=== PATIENT | female | born 1990 | race African-American/Black ===

== ENCOUNTER → 2018-04-28 | Outpatient (CLI) | payer OTHER | LOC: M LAB 12:09 | DX: R76.11 Nonspecific reaction to tuberculin skin test without active tuberculosis (principal) | CPT/HCPCS: 36415 ==

== ENCOUNTER 2018-06-28 00:21 | Emergency (ER) | payer OTHER ==
[2018-06-28 01:30] LABS: APPEARANCE, URINE CLEAR (CLEAR); BACTERIA, URINE AUTO NEGATIVE (NEGATIVE); BILIRUBIN, URINE AUTO NEGATIVE (NEGATIVE); BLOOD, URINE BLOOD NEGATIVE (NEGATIVE); COLOR, URINE YELLOW (YELLOW); GLUCOSE, URINE (UA) AUTO NEGATIVE (NEGATIVE); KETONE, URINE AUTO NEGATIVE (NEGATIVE); LEUKOCYTE ESTERASE, URINE AUTO NEGATIVE (NEGATIVE); MUCUS, URINE SMALL (NEGATIVE); NITRITE, URINE AUTO NEGATIVE (NEGATIVE); PROTEIN, URINE AUTO NEGATIVE (NEGATIVE); RBC, URINE AUTO 2 /HPF (0-3); SPECIFIC GRAVITY URINE AUTO 1.023 (1.002-1.035); SQUAMOUS EPITHELIAL CELL UR AU 1 /HPF (0-6); UROBILINOGEN, URINE AUTO 0.2 mg/dL (0.0-2.0); WBC, URINE AUTO 1 /HPF (0-3)
[2018-06-28] MEDS: NS 1,000 ML IV (01:45)
[2018-06-28] MEDS: metroNIDAZOLE (FLAGYL) 500 MG TAB PO (02:00)
[2018-06-28 02:03] LABS: BASO % 0.4 % (0.0-1.0); EOS # 0.2 10^3/uL (0.0-0.50); EOS % 2.3 % (0.0-3.0); HEMOGLOBIN 11.8 g/dl (12.0-15.5); IMMATURE GRANULOCYTE % 0.3 % (0-3.0); LYMPH # 2.6 10^3/uL (1.5-6.5); LYMPH % 33.4 % (24.0-44.0); MEAN CORPUSCULAR HEMOGLOBIN 30.7 pg (27.0-33.0); MEAN CORPUSCULAR HGB CONC 32.8 g/dl (32.0-36.5); MEAN CORPUSCULAR VOLUME 93.8 fl (80.0-96.0); MONO # 0.7 10^3/uL (0.0-0.8); MONO % 8.7 % (0.0-5.0); NEUTROPHILS # 4.2 10^3/uL (1.8-7.7); NEUTROPHILS % 54.9 % (36.0-66.0); PLATELET COUNT, AUTOMATED 181 10^3/uL (150-450); RED BLOOD COUNT 3.84 10^6/uL (4.00-5.40); RED CELL DISTRIBUTION WIDTH 12.6 % (11.5-14.5); WHITE BLOOD COUNT 7.7 10^3/uL (4.0-10.0)
[2018-06-28 02:21] LABS: CONTROL LINE HCG INT CTR LINE PRESENT; HCG, SERUM QUALITATIVE NEGATIVE (NEGATIVE)
[2018-06-28 02:28] LABS: ALBUMIN 3.9 GM/DL (3.2-5.2); ALBUMIN/GLOBULIN RATIO 0.81 (1.00-1.93); ALKALINE PHOSPHATASE 53 U/L (45-117); ALT/SGPT 47 U/L (12-78); ANION GAP 8 MEQ/L (8-16); AST/SGOT 24 U/L (7-37); BILIRUBIN,TOTAL 0.2 MG/DL (0.2-1.0); BLOOD UREA NITROGEN 12 MG/DL (7-18); CALCIUM LEVEL 8.8 MG/DL (8.5-10.1); CARBON DIOXIDE LEVEL 28 MEQ/L (21-32); CHLORIDE LEVEL 102 MEQ/L (98-107); CREATININE FOR GFR 0.78 MG/DL (0.55-1.30); GLOMERULAR FILTRATION RATE > 60.0 (>60); GLUCOSE, FASTING 83 MG/DL (70-100); LIPASE 656 U/L (73-393); POTASSIUM SERUM 3.9 MEQ/L (3.5-5.1); SODIUM LEVEL 138 MEQ/L (136-145); TOTAL PROTEIN 8.7 GM/DL (6.4-8.2)
[2018-06-28 03:16] LABS: CHLAMYDIA DNA AMPLIFICATION NEGATIVE (NEGATIVE); GC DNA AMPLIFICATION NEGATIVE (NEGATIVE)
== END 2018-06-28 03:08 | disposition home or self-care (01) ==
LOC: M ED 00:21
DX: N76.0 Acute vaginitis (principal); Z88.1 Allergy status to other antibiotic agents; Z88.2 Allergy status to sulfonamides
CPT/HCPCS: 76856

== ENCOUNTER → 2018-08-03 | Outpatient (REF) | payer OTHER ==
[~2018-08-03] MED LIST: FLAG500T PO
[2018-08-03 20:04] LABS: CHLAMYDIA DNA AMPLIFICATION NEGATIVE (NEGATIVE); GC DNA AMPLIFICATION NEGATIVE (NEGATIVE)
== END ==
LOC: M LAB REF 16:32
PROVIDERS: ATTEND Nurse Practitioner Family
DX: N89.8 Other specified noninflammatory disorders of vagina (principal)
CPT/HCPCS: 36415; 80053; 80061; 81002; 81025; 82306; 84439; 84443; 85025; 87070; 87077; 87086; 87186; 87491; 87591; G0463

== ENCOUNTER → 2018-08-03 | Outpatient (REF) | payer OTHER ==
[2018-08-03 12:03] LABS: BASO % 0.3 % (0.0-1.0); EOS # 0.1 10^3/uL (0.0-0.50); EOS % 1.2 % (0.0-3.0); HEMATOCRIT 34.4 % (36.0-47.0); HEMOGLOBIN 11.1 g/dl (12.0-15.5); LYMPH % 29.7 % (24.0-44.0); MEAN CORPUSCULAR HEMOGLOBIN 30.4 pg (27.0-33.0); MEAN CORPUSCULAR HGB CONC 32.3 g/dl (32.0-36.5); MEAN CORPUSCULAR VOLUME 94.2 fl (80.0-96.0); MONO # 0.7 10^3/uL (0.0-0.8); MONO % 10.1 % (0.0-5.0); NEUTROPHILS # 3.9 10^3/uL (1.8-7.7); NEUTROPHILS % 58.5 % (36.0-66.0); PLATELET COUNT, AUTOMATED 162 10^3/uL (150-450); RED BLOOD COUNT 3.65 10^6/uL (4.00-5.40); WHITE BLOOD COUNT 6.7 10^3/uL (4.0-10.0)
[2018-08-03 12:13] LABS: ALBUMIN 3.7 GM/DL (3.2-5.2); ALT/SGPT 20 U/L (12-78); BILIRUBIN,TOTAL 0.3 MG/DL (0.2-1.0); BLOOD UREA NITROGEN 9 MG/DL (7-18); CALCIUM LEVEL 8.7 MG/DL (8.5-10.1); CARBON DIOXIDE LEVEL 28 MEQ/L (21-32); CHLORIDE LEVEL 103 MEQ/L (98-107); CHOLESTEROL LEVEL 133 MG/DL (<200); CHOLESTEROL RISK RATIO 2.293 (<5); CREATININE FOR GFR 0.77 MG/DL (0.55-1.30); FREE T4 1.08 NG/DL (0.76-1.46); GLOMERULAR FILTRATION RATE > 60.0 (>60); GLUCOSE, FASTING 86 MG/DL (70-100); HDL CHOLESTEROL 58 MG/DL (>40); LDL CHOLESTEROL 58 MG/DL (<100); NON-HDL-C 75 MG/DL; POTASSIUM SERUM 4.2 MEQ/L (3.5-5.1); SODIUM LEVEL 139 MEQ/L (136-145); TOTAL PROTEIN 7.7 GM/DL (6.4-8.2); TRIGLYCERIDES LEVEL 84 MG/DL (<150)
[2018-08-03 12:14] LABS: TOTAL 25(OH) VITAMIN D 19.5 NG/ML (30.0-100.0)
== END ==
LOC: M SFHCPLAZ 09:05
PROVIDERS: ATTEND Nurse Practitioner Family
DX: R09.81 Nasal congestion (principal); E66.9 Obesity, unspecified; F32.9 Major depressive disorder, single episode, unspecified

== ENCOUNTER → 2018-09-13 | Outpatient (REF) | payer OTHER ==
[2018-09-13 21:04] LABS: CHLAMYDIA DNA AMPLIFICATION NEGATIVE (NEGATIVE); GC DNA AMPLIFICATION NEGATIVE (NEGATIVE)
== END ==
LOC: M LAB REF 17:45
PROVIDERS: ATTEND Physician Assistant
DX: N76.0 Acute vaginitis (principal)

== ENCOUNTER 2020-02-20 02:18 | Emergency (ER) | payer OTHER ==
[2020-02-21] MEDS ORDERED: methocarbamoL 500 MG TAB ONE (02:00)
[2020-02-21] MEDS ORDERED: KETOROLAC 60MG 2ML VIAL ONE (02:00)
== END 2020-02-21 02:10 | disposition home or self-care (01) ==
LOC: M ED 02:18
DX: M54.41 Lumbago with sciatica, right side (principal); Z88.2 Allergy status to sulfonamides
CPT/HCPCS: 99282; J1885

== ENCOUNTER 2020-03-02 17:33 | Emergency (ER) | payer OTHER ==
[~2020-03-02] VITALS: Ht 162.6 cm; Wt 74.1 kg
[2020-03-02] MEDS ORDERED: [UNRECOGNIZED DRUG - OTHER] (17:41)
[2020-03-02 19:54] VITALS: BP 133/85
[2020-03-02] MEDS ORDERED: AUGM875T28 PO (19:59)
[2020-03-02] MEDS ORDERED: AUGMENTIN 875 MG TAB PO ONE (20:00)
== END 2020-03-02 20:35 | disposition home or self-care (01) ==
LOC: M ED 17:33
DX: H00.014 Hordeolum externum left upper eyelid (principal); H00.015 Hordeolum externum left lower eyelid; Z88.2 Allergy status to sulfonamides